=== PATIENT | female | born 2000 | race Caucasian/White ===

== ENCOUNTER 2022-09-22 09:01 | Emergency (ER) | payer MEDICAID ==
[2022-09-22] MEDS: Lidocaine 2% Viscous Solution 15 ML UD PO ONE (10:17)
[2022-09-22] MEDS: Lidocaine 2% Viscous Solution 15 ML UD ONE (10:19)
== END 2022-09-22 10:55 | disposition home or self-care (01) ==
LOC: LB.ED 09:01
DX: J03.90 Acute tonsillitis, unspecified (principal); Z79.899 Other long term (current) drug therapy; Z87.891 Personal history of nicotine dependence; Z20.822 Contact with and (suspected) exposure to COVID-19
CPT/HCPCS: 36415; 85025; 86308; 87430; 87804; 87804-59; 99283; A9270-GY; U0002

== ENCOUNTER 2022-11-22 18:35 | Emergency (ER) | payer MEDICAID | END 2022-11-22 19:30 | disposition home or self-care (01) | LOC: LB.ED 18:35 | DX: N92.6 Irregular menstruation, unspecified (principal); F17.210 Nicotine dependence, cigarettes, uncomplicated | CPT/HCPCS: 81001; 81025; 99284 ==